=== PATIENT | female | born 1980 | race Caucasian/White ===

== ENCOUNTER 2017-02-04 02:56 | Emergency (ER) | payer OTHER ==
[~2017-02-04] VITALS: Ht 167.6 cm; Wt 59.0 kg
[2017-02-04 02:56] VITALS: BP_SYST 159
[2017-02-04] MEDS ORDERED: DIPH-TET-PERTUS Vaccine 0.5 ML VIAL (ADACEL) IM ONE (03:15)
[2017-02-04] MEDS ORDERED: BACITRACIN 1 GM OINT TP ONE (03:15)
[2017-02-04] MEDS ORDERED: LIDOCAINE 1% 10 MG/ML, 20 ML MDV IJ ONE (03:15)
[2017-02-04 04:30] VITALS: BP_SYST 120
== END 2017-02-04 04:30 | disposition home or self-care (01) ==
LOC: SED 02:56
DX: S61.511A Laceration without foreign body of right wrist, initial encounter (principal); W25.XXXA Contact with sharp glass, initial encounter; Y93.89 Activity, other specified; Y92.89 Other specified places as the place of occurrence of the external cause; Y99.8 Other external cause status
CPT/HCPCS: 12001; 90471; 90715; 99283; J2001